=== PATIENT | female | born 1940 | race Asian ===

== ENCOUNTER 2020-08-26 14:46 | Emergency (ER) | payer OTHER, MEDICAID ==
[~2020-08-26] VITALS: Ht 162.6 cm; Wt 57.2 kg
[2020-08-26 16:47] LABS: Urine Bacteria FEW /hpf (None Seen); Urine Blood 3+ /uL (Negative); Urine Mucus FEW (None Seen); Urine WBC 24 /hpf (0 - 5)
[2020-08-26 18:08] VITALS: BP 162/72
== END 2020-08-26 19:09 | disposition home or self-care (01) ==
LOC: ER 14:46
DX: N39.0 Urinary tract infection, site not specified (principal)
CPT/HCPCS: 81001